=== PATIENT | female | born 1970 | race Caucasian/White ===

== ENCOUNTER 2022-08-04 08:51 | Outpatient (CLI) | payer BC, SELFPAY ==
--- NOTE | 2022-08-04 09:15 | CRLHL7_ITS ---
For Patients: As a result of the Century Cures Act, medical imaging exams and procedure reports are released immediately into your electronic medical record. You may view this report before your referring provider. If you have questions, please contact your health care provider. INDICATION: Period on IUD COMPARISON: none TECHNIQUE: 2D duarte scale and color Doppler images were acquired of the pelvis using a transabdominal and transvaginal approach. FINDINGS: Sonographic images demonstrate a normal size and smooth outer contour of the uterus. Uterus measures 10.0 cm in length by 4.2 cm in AP diameter by 5.6 cm in transverse dimension. The myometrium has a normal uniform echotexture. The endometrial lining appears normal and measures 5 mm in composite thickness. Intrauterine device is located in good position within the endometrial canal. Incidental cervical nabothian cysts are present. The right ovary measures 2.6 x 1.6 x 2.6 cm in size and the left ovary measures 3.8 x 0.9 x 2.8 cm. The ovaries demonstrate normal arterial and venous blood flow on color Doppler analysis. Small hypoechoic right ovarian cyst is present measuring 9 millimeters. Small right parovarian cyst measuring 7 millimeters. There are no suspicious fluid collections within the cul-de-sac. IMPRESSION: IUD in good position within the endometrial canal. No uterine fibroid. Dictated by Bakari Chowdhury MD @ 08/04/2022 11:40:30 AM (Electronically Signed)
== END 2022-08-04 08:52 | disposition home or self-care (01) ==
PROVIDERS: PCP Internal Medicine; Visit Provider Obstetrics & Gynecology
DX: T83.83XA Hemorrhage due to genitourinary prosthetic devices, implants and grafts, initial encounter (principal)
CPT/HCPCS: 76830; 76856

== ENCOUNTER 2022-08-19 09:50 | Outpatient (CLI) | payer BC, SELFPAY | END 2022-08-19 09:51 | disposition home or self-care (01) | LOC: NFLDREF 08-20 08:56 | PROVIDERS: PCP Internal Medicine; Referring Provider Internal Medicine; Visit Provider Obstetrics & Gynecology | DX: N92.0 Excessive and frequent menstruation with regular cycle (principal); I10 Essential (primary) hypertension | CPT/HCPCS: 83001; 84439; 84443 ==

== ENCOUNTER 2022-12-01 08:39 | Day surgery (SDC) | payer BC, SELFPAY ==
[2022-12-01] VITALS (27 sets, daily range): BP systolic 94–131; BP diastolic 49–80; PULSE 51–83; RESP 14–20; TEMP 36.2–37.1; O2SAT 97–100; BMI 24.7
[2022-12-01] MEDS: LACTATED RINGERS 1000 ML 1,000 ML 100 ML IV ×2 (08:50→12:23)
[2022-12-01 09:23] LABS: Ur HCG Qualitative* Negative (Negative)
[2022-12-01 09:37] LABS: Hemoglobin* 14.1 gm/dL (12.0-16.0)
[2022-12-01] MEDS: SODIUM CHLORIDE 0.9 % (FLUSH) 10 ML SYRINGE IVF (09:40)
[2022-12-01 09:53] LABS: Creatinine* 0.6 mg/dL (0.5-1.5); Est. Creatinine Clearance* 90.73; Estimated Glomerular Filt Rate 108 ml/min
[2022-12-01 10:22] LABS: Appearance Urine Slightly Cloudy (Clear); Bilirubin Urine Negative (Negative); Blood Urine 1+ (Negative); Color Urine Yellow (Yellow); Glucose Urine Negative (Negative); Ketones Urine Negative (Negative); Leukocyte Esterase Urine 1+ (Negative); Nitrite Urine Negative (Negative); Protein Urine Negative (Negative); Specific Gravity Urine 1.015 (1.000-1.030); Urobilinogen Urine 0.2 (0.2-1.0)
[2022-12-01 10:40] LABS: Squamous Epithelial Cell Urine Few (None-Few)
[2022-12-01 10:41] LABS: Bacteria Urine Few
[2022-12-01] MEDS: CEFAZOLIN 2 GM INJ IVP (11:05)
[2022-12-01] MEDS: 0.9 % SODIUM CHLORIDE 50 ml INJECTION (11:51)
[2022-12-01] MEDS: VASOPRESSIN 20 UNIT/ML INJ INJECTION (11:52)
[2022-12-01] MEDS: KETOROLAC 15 MG/ML inj IVP (12:26)
--- NOTE | 2022-12-01 12:27 | W.ANESCHARGE ---
Anesthesia Charges Start Date/Time Anesthesia Start Date: 12/01/22 Anesthesia Start Time: 10:47 Stop Date/Time Anesthesia Stop Date: 12/01/22 Anesthesia Stop Time: 12:43
--- NOTE | 2022-12-01 12:43 | PM.PROC ---
Procedure Note Time Seen by Provider: 12:43 Date Seen: 12/01/22 Date of procedure: 12/01/22 Will 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 Granados with the patient's surgery. I aided in dissection, visualization, and obtaining hemostasis. Please see Dr. Granados's note for complete details. Anesthesia: MAC and regional Estimated blood loss (mL): 25 Urine output (mL): 350 Pathology: specimen obtained, sent to pathology Condition: stable Disposition: PACU
[2022-12-01] MEDS: fentaNYL 100 MCG/2 ML inj 50 MCG IVP (12:56)
--- NOTE | 2022-12-01 13:00 | W.PM.GYNPROC ---
Procedure Note Date Seen: 12/01/22 Procedure Details: PREOPERATIVE DIAGNOSIS: Perimenopausal menorrhagia POSTOPERATIVE DIAGNOSIS: Perimenopausal menorrhagia PROCEDURE: Total vaginal hysterectomy, bilateral salpingectomy, cystoscopy SURGEON: Karine Granados MD MOTEL FRONT DESK CLERK: Brittani Morales MD ANESTHESIA: Spinal IV FLUIDS: 1200 crystalloid URINE OUTPUT: 350 cc EBL: 25 cc FINDINGS: Normal appearance to vagina and cervix. Uterus, tubes and ovaries normal in appearance. Upon cystoscopy, performed at end of procedure, bilateral ureteral jets were noted and there was no injury to the bladder dome. There were some white flecks of debris noted to be floating in the urine within the bladder. COMPLICATIONS: None PROCEDURE IN DETAIL: Patient was taken to the operating room with IV running. Spinal anesthesia was administered. She received cefazolin in preoperative prophylaxis. She was positioned in dorsal lithotomy position with her legs in candy-cane stirrups. Exam under anesthesia was performed for the above noted findings. Hicks catheter was inserted. Weighted speculum was inserted. Cervix was grasped along its anterior and posterior lips with thyroid Mary Ann clamps. The cervical vaginal junction was circumferentially infiltrated with dilute vasopressin. The cervical vaginal junction was then incised circumferentially with scalpel. The vaginal epithelium was dissected bluntly off bilateral uterosacral ligaments. Anterior colpotomy was performed sharply, and a Carlotta retractor was placed between the bladder and the uterus. The posterior colpotomy was performed sharply, and a long weighted speculum was placed in the cul-de-sac. Bilateral uterosacral ligaments were clamped, cut, suture ligated with 0 Vicryl, and tagged for later identification. The cardinal ligaments were serially clamped, cut, and suture ligated bilaterally with 0 Vicryl. Finally, using the LigaSure Impact device, the remnants of the broad ligament were cauterized and transected, ultimately freeing the uterus from its attachments to the pelvis. The uterus was delivered through the vagina. Bilateral ovaries and tubes were normal in appearance. The bilateral Fallopian tubes were freed from the investing broad ligament and blood supply was divided with the LigaSure Impact. Each was sent to pathology with the uterus. The angles of the vaginal cuff were closed with a stitch of 0 Vicryl, incorporating the distal uterosacral ligament (appoximately 1 cm above the vaginal cuff) into the closure. The intervening vaginal cuff was closed with a series of [id number] sutures of 0 Vicryl. Hemostasis was noted. All instruments were removed from the vagina. Hicks catheter was removed from the patient's bladder. Patient was administered IV sodium fluorescein to aid in visualization of ureteral jets. Cystoscopy was performed, revealing bilateral ureteral jets and no injury to the bladder. The cystoscope was removed and the Hicks catheter replaced. Patient tolerated procedure well and was taken to recovery area in stable condition.
--- NOTE | 2022-12-01 13:25 | SUR.PHASEI ---
patient met discharge criteria per anesthesia
--- NOTE | 2022-12-01 15:58 | PC.NURSE ---
Pt arrived from PACU to room 262 s/p vaginal hysterectomy/salpingectomy with Dr. Granados at 1325 pm. Please see initial assessment from PACU and frequent post op routing VS. Pt rating her pain 3 out of 10. Mild itching secondary to duramorph. Tolerating CL diet. Dr. Granados in to speak with pt about surgical procedure and plan for voiding trial later this evening. Report to Brittany MAGALLANES for evening shift.
[2022-12-01] MEDS: diphenhydrAMINE 50 MG/ML inj 12.5 MG IVP ×2 (16:30→21:26)
[2022-12-01] MEDS: SIMETHICONE 80 MG TAB.CHEW 160 MG PO (16:30)
[2022-12-01] MEDS: KETOROLAC 30 MG/ML inj IVP (19:00)
[2022-12-01] MEDS: DOCUSATE SODIUM 100 MG CAPSULE PO (21:26)
[2022-12-02] VITALS (13 sets, daily range): BP systolic 100–119; BP diastolic 61–72; PULSE 58–73; RESP 16–18; TEMP 36.8–37.2; O2SAT 98–100
[2022-12-02] MEDS: KETOROLAC 30 MG/ML inj IVP (00:09)
[2022-12-02] MEDS: OXYCODONE 5 MG TABLET PO ×4 (00:10→11:53)
[2022-12-02] MEDS: SODIUM CHLORIDE 0.9 % (FLUSH) 10 ML SYRINGE IVF (00:10)
--- NOTE | 2022-12-02 00:50 | PC.NURSE ---
End of Shift: Patient pleasant and cooperative. Afebrile. Duramorph protocol in place, O2 sats mid to upper 90s on room air. Occasional itching and PRN Benadryl given x2. Up to chair and bathroom with SBA. Rating pain in abdomen 3-5/10. Hicks backfilled and removed, patient voided 450 mL 30 minutes later, updated MD. OK to SL IV. Tolerating regular diet with no nausea.
--- NOTE | 2022-12-02 05:23 | PC.NURSE ---
[id number] Pt slept well during night, denied pain, controlled with oral pain medication. ind in room. voiding without difficulty, denies passing gas at this time. No N/V.
[2022-12-02 06:48] LABS: Hemoglobin* 12.5 gm/dL (12.0-16.0)
[2022-12-02 07:06] LABS: Creatinine* 0.6 mg/dL (0.5-1.5); Est. Creatinine Clearance* 90.73; Estimated Glomerular Filt Rate 108 ml/min
[2022-12-02] MEDS: ACETAMINOPHEN 325 MG TABLET 650 MG PO (10:06)
--- NOTE | 2022-12-02 12:24 | P.DS_ITS ---
DS: Providers Provider Time Seen by Provider: 12:30 Date Seen: 12/02/22 Date of admission: 12/01/22 Primary care physician: Esha Salinas Attending Physician on discharge: Wendi Liang MD Date of Discharge: 12/02/22 DS: Diagnosis Discharge Diagnosis (1) S/P vaginal hysterectomy: Status: Acute Problem details: bilateral salpingectomy, cystoscopy REJECT OPENER AND FILLER-Discharge Summary Hospital Course Hospital Course Narrative: Patient is a 52 year old admitted on 12/01/2022 for elective surgery. Indication for surgery: Perimenopausal menorrhagia. She had an uncomplicated surgery. Postoperative course has been uneventful. Vitals have been stable. She has remained afebrile. Today, on postoperative day 1, she reports the pain is well controlled. She has been able to ambulate Without difficulty. She is tolerating regular diet. She is passing flatus. Hicks catheter has been removed, and she is voiding without difficulty. Time Spent with Patient Time attestation: Total time spent providing and/or coordinating discharge services: Time spent: Less than 30 minutes REJECT OPENER AND FILLER - Exam Physical Exam: Vital signs: Temp Pulse Resp BP Pulse Ox O2 Del Method O2 Flow Rate 99.0 F 67 18 119/69 100 Room Air 0 12/02/22 11:00 12/02/22 11:00 12/02/22 11:00 12/02/22 11:00 12/02/22 11:00 12/02/22 11:00 12/02/22 11:00 Narrative: VITAL SIGNS: As noted above. GENERAL APPEARANCE: Alert, cooperative female in no acute distress. MOOD & AFFECT: Normal. ABDOMEN: Soft, non-distended and nontender. : Minimal spotting. EXTREMITIES: Nonedematous. Well perfused. Nontender. REJECT OPENER AND FILLER - DS: Data Data Completed and Pending Labs on day of discharge: Labs from last 24 hours 12/02/22 06:15 Hgb 12.5 Creatinine 0.6 Estimated Creat Clear 90.73 Estimated GFR 108 Preliminary micro results at discharge 12/01/22 Unknown Urine Culture - Preliminary Urine,Clean Catch Gram negative richard Procedures Procedures: Procedures Operation Date: 12/01/22 10:25 Actual Procedure Side Surgeon p Total Vaginal Hysterectomy, Bilateral Salpingectomy, Cystoscopy Karine Granados MD Discharge Plan Discharge Disposition: Home, Self-Care Discharging Surgeon: Wendi Liang Follow-Up Appointment: [address] [facility] with Dr. Granados Prescriptions: New docusate sodium 100 mg Capsule 100 mg PO BID PRN (Reason: Constipation) Qty: 30 0RF simethicone 80 mg Tablet,Chewable 160 mg PO Q4H PRN (Reason: gas) Qty: 30 0RF oxycodone 5 mg Tablet 5 - 10 mg PO Q4H PRN (Reason: Moderate Pain) Qty: 20 0RF Continued sumatriptan succinate 100 mg tablet 100 mg PO Q2H PRN (Reason: migraine) calcium carbonate-vitamin D3 500 mg-10 mcg (400 unit) tablet 1 tab PO TID Protect Iron 60 mg iron-1 mg tablet 1 tab PO DAILY mupirocin 2 % ointment 1 applic topical TID Discontinued Excedrin Extra Strength 250-250-65 mg tablet 1 tab PO Q6H PRN Activity Level: No strenuous activity Activity Detail: No heavy lifting more than 15 pounds for 6 weeks, nothing vaginally for 6 weeks Discharge Diet: Regular Patient Instructions: Simethicone (By mouth), Laxative, Stool Softeners (By mouth), Oxycodone, Rapid Release (By mouth), Surgical Site Infections (DC), Vaginal Hysterectomy (DC) Forms: Work/School Release Follow-up: Karine Granados MD [Staff Physician] - 12/12/22 1:00 pm ([facility], follow-up.) Esha Salinas [Primary Care Provider] - Discharge Orders: Discharge Order (Routine); Ordered 12/02/22 Ordered By: Wendi iLang
--- NOTE | 2022-12-02 14:35 | PC.NURSE ---
Patient vitally stable. Patient PIV removed. All concerns addressed. Patient discharged to home.
== END 2022-12-02 14:00 | disposition home or self-care (01) ==
LOC: OR 08:39 → MEDSURG 12-02 12:26
PROVIDERS: PCP Internal Medicine; Visit Provider Obstetrics & Gynecology
PROC: 0TJB8ZZ Inspection of Bladder, Via Natural or Artificial Opening Endoscopic (ICD-10-PCS; CPT 57260; principal; 2022-12-01 10:15)
DX: N92.4 Excessive bleeding in the premenopausal period (principal); N84.0 Polyp of corpus uteri
CPT/HCPCS: 58262; 00944; 36415; 51701; 81001; 81025; 82565; 85018; 86850; 86900; 86901; 87086; 87186; 88307; 94761; 99211; A9270; J0690; J1100; J1170; J1200; J1885; J2250; J2274; J2371; J2405; J3010; J7120